=== PATIENT | male | born 1960 | race Hispanic/Latino ===

== ENCOUNTER 2020-12-13 21:37 | Inpatient (IN) | payer MEDICARE ==
[2020-12-13] MEDS ORDERED: VANCOMYCIN 1GM/NS 250 ML 250 ML IV ONE (21:41)
[2020-12-13] MEDS ORDERED: CEFEPIME HCL 1GM 1 GM in SODIUM CHLORIDE 0.9% 50ML 50 ML IV ONE (21:41)
[2020-12-13] MEDS ORDERED: DEXTROSE 50% SYRINGE 50 ML IV PRN (22:00)
[2020-12-13 23:06] LABS: ALBUMIN/GLOBULIN RATIO 0.3 (0.8-2.0); ANION GAP 19.6 mmol/L (8-16); BASOPHILS # (AUTO) 0.1 (0.0-0.1); BASOPHILS % 0.3 % (0.0-1.0); CALCIUM 8.6 mg/dL (8.4-10.2); CREATININE, SERUM 3.07 mg/dL (0.72-1.25); EOSINOPHILS # (AUTO) 0.1 (0.0-0.4); EOSINOPHILS % 0.6 % (0.0-6.0); HEMOGLOBIN 7.9 g/dL (14.0-18.0); LYMPHOCYTES # (AUTO) 1.2 (1.0-3.2); LYMPHOCYTES % 5.4 % (18.0-39.1); MEAN CORPUSCULAR HEMOGLOBIN 28.8 pg (28-32); MEAN CORPUSCULAR HGB CONC 31.6 g/dL (31-35); MEAN CORPUSCULAR VOLUME 91.2 fL (81-99); MONOCYTES # (AUTO) 0.9 (0.2-0.8); MONOCYTES % 4.1 % (4.4-11.3); NEUTROPHILS # (AUTO) 19.2 (2.1-6.9); NEUTROPHILS % 88.4 % (38.7-80.0); PLATELET COUNT 374 x10e3/uL (140-360); POTASSIUM 4.6 mmol/L (3.5-5.1); RED BLOOD COUNT 2.74 x10e6/uL (4.3-5.7); RED CELL DISTRIBUTION WIDTH 15.6 % (11.7-14.4)
[2020-12-13 23:24] LABS: CREATINE KINASE MB 0.8 ng/mL (0-5.0)
[2020-12-14] VITALS (11 sets, daily range): BP systolic 94–164; BP diastolic 24–78
[2020-12-14] MEDS: SODIUM CHLORIDE 0.9% 1000ML 1,000 ML IV SCH ×2 (01:06→04:51)
[2020-12-14] MEDS ORDERED: SODIUM CHLORIDE 0.9% 50ML 50 ML ONE (01:13)
[2020-12-14] MEDS ORDERED: CEFEPIME HCL 1 GM VIAL ONE (01:13)
[2020-12-14 05:41] LABS: BASOPHILS # (AUTO) 0.1 (0.0-0.1); BASOPHILS % 0.4 % (0.0-1.0); EOSINOPHILS # (AUTO) 0.2 (0.0-0.4); EOSINOPHILS % 1.2 % (0.0-6.0); HEMATOCRIT 24.4 % (38.2-49.6); HEMOGLOBIN 7.8 g/dL (14.0-18.0); LYMPHOCYTES # (AUTO) 1.2 (1.0-3.2); LYMPHOCYTES % 5.9 % (18.0-39.1); MEAN CORPUSCULAR HEMOGLOBIN 28.9 pg (28-32); MEAN CORPUSCULAR VOLUME 90.4 fL (81-99); MONOCYTES # (AUTO) 0.9 (0.2-0.8); MONOCYTES % 4.6 % (4.4-11.3); NEUTROPHILS # (AUTO) 17.2 (2.1-6.9); NEUTROPHILS % 86.8 % (38.7-80.0); PLATELET COUNT 361 x10e3/uL (140-360); RED CELL DISTRIBUTION WIDTH 15.2 % (11.7-14.4)
[2020-12-14] MEDS ORDERED: HYDRALAZINE HCL50 MG PEG (05:44)
[2020-12-14] MEDS ORDERED: ASCORBIC ACID500 M4 PEG (05:44)
[2020-12-14] MEDS ORDERED: CLONIDINE HCL0.1 MG PEG (05:44)
[2020-12-14] MEDS ORDERED: HYDROCODON-ACE1 EA11 PEG (05:44)
[2020-12-14] MEDS ORDERED: CALCIUM ACETAT667 M1 PEG (05:44)
[2020-12-14] MEDS ORDERED: FUROSEMIDE20 MG PEG (05:44)
[2020-12-14] MEDS ORDERED: CLOPIDOGREL75 MG PEG (05:44)
[2020-12-14] MEDS ORDERED: DOXAZOSIN MESYLA2 MG PEG (05:44)
[2020-12-14] MEDS ORDERED: AMLODIPINE BESYL5 MG PEG (05:44)
[2020-12-14 06:04] LABS: ALBUMIN 1.9 g/dL (3.5-5.0); ALBUMIN/GLOBULIN RATIO 0.3 (0.8-2.0); ANION GAP 17.8 mmol/L (8-16); CALCIUM 8.5 mg/dL (8.4-10.2); CREATININE, SERUM 3.18 mg/dL (0.72-1.25); POTASSIUM 3.8 mmol/L (3.5-5.1)
[2020-12-14] MEDS: INSULIN REGULAR, HUMAN 100 UNIT/1 ML 3ML VIAL SQ SCH ×4 (07:30→21:00)
[2020-12-14] MEDS ORDERED: CLONIDINE HCL 0.1 MG TAB PEG PRN (09:30)
[2020-12-14] MEDS ORDERED: HYDROCODONE/APAP 5MG-325MG TAB PEG PRN (09:30)
[2020-12-14] MEDS: HYDRALAZINE HCL 100 MG TABLET PEG SCH ×2 (11:00→23:23)
[2020-12-14] MEDS: DOXAZOSIN MESYLATE 2 MG TAB PEG SCH (11:00)
[2020-12-14] MEDS: CLOPIDOGREL BISULFATE 75 MG TAB PEG SCH (11:00)
[2020-12-14] MEDS: AMLODIPINE BESYLATE 5 MG TAB PEG SCH ×2 (11:00→16:14)
[2020-12-14] MEDS: FUROSEMIDE 20 MG TAB PEG SCH ×2 (11:00→16:56)
[2020-12-14] MEDS: CALCIUM ACETATE 667 MG GELCAP PEG SCH ×2 (13:00→16:56)
[2020-12-14] MEDS: ASCORBIC ACID 500 MG TAB PEG SCH (16:56)
[2020-12-14] MEDS: VANCOMYCIN 1GM/NS 250 ML 250 ML IV SCH (23:23)
[2020-12-15] VITALS (8 sets, daily range): BP systolic 120–165; BP diastolic 48–81
[2020-12-15] MEDS: HYDRALAZINE HCL 100 MG TABLET PEG SCH ×3 (06:15→20:45)
[2020-12-15] MEDS ORDERED: CEFEPIME HCL 1 GM VIAL IV SCH (09:00)
[2020-12-15] MEDS: CEFEPIME HCL 1GM 1 GM in SODIUM CHLORIDE 0.9% 50ML 50 ML IV SCH (10:33)
[2020-12-15] MEDS: CALCIUM ACETATE 667 MG GELCAP PEG SCH ×3 (10:33→17:56)
[2020-12-15] MEDS: DOXAZOSIN MESYLATE 2 MG TAB PEG SCH (10:34)
[2020-12-15] MEDS: BALSAM PERU/CASTOR OIL 60 GM OINT...G. TP SCH (10:34)
[2020-12-15] MEDS: FUROSEMIDE 20 MG TAB PEG SCH ×2 (10:34→17:56)
[2020-12-15] MEDS: CLOPIDOGREL BISULFATE 75 MG TAB PEG SCH (10:34)
[2020-12-15] MEDS: ASCORBIC ACID 500 MG TAB PEG SCH ×2 (10:34→17:56)
[2020-12-15] MEDS: AMLODIPINE BESYLATE 5 MG TAB PEG SCH ×2 (10:34→17:56)
[2020-12-15] MEDS: INSULIN REGULAR, HUMAN 100 UNIT/1 ML 3ML VIAL SQ SCH ×4 (11:00→21:02)
[2020-12-15] MEDS: CLINDAMYCIN 600MG / 50ML 50 ML IV SCH ×2 (13:27→21:01)
[2020-12-16] VITALS (8 sets, daily range): BP systolic 111–121; BP diastolic 34–57
[2020-12-16] MEDS: ACETAMINOPHEN 325 MG TAB PO PRN ×2 (01:24→16:15)
[2020-12-16] MEDS: HYDRALAZINE HCL 100 MG TABLET PEG SCH ×3 (05:16→20:05)
[2020-12-16] MEDS: CLINDAMYCIN 600MG / 50ML 50 ML IV SCH ×3 (05:17→19:43)
[2020-12-16] MEDS: INSULIN REGULAR, HUMAN 100 UNIT/1 ML 3ML VIAL SQ SCH ×4 (07:30→20:39)
[2020-12-16 07:56] LABS: BASOPHILS # (AUTO) 0.1 (0.0-0.1); BASOPHILS % 0.3 % (0.0-1.0); EOSINOPHILS # (AUTO) 0.2 (0.0-0.4); HEMATOCRIT 23.1 % (38.2-49.6); HEMOGLOBIN 7.2 g/dL (14.0-18.0); LYMPHOCYTES % 5.2 % (18.0-39.1); MEAN CORPUSCULAR HEMOGLOBIN 29.1 pg (28-32); MEAN CORPUSCULAR HGB CONC 31.2 g/dL (31-35); MEAN CORPUSCULAR VOLUME 93.5 fL (81-99); MONOCYTES # (AUTO) 1.2 (0.2-0.8); MONOCYTES % 6.5 % (4.4-11.3); NEUTROPHILS # (AUTO) 16.2 (2.1-6.9); NEUTROPHILS % 86.2 % (38.7-80.0); PLATELET COUNT 360 x10e3/uL (140-360); RED BLOOD COUNT 2.47 x10e6/uL (4.3-5.7); RED CELL DISTRIBUTION WIDTH 15.8 % (11.7-14.4)
[2020-12-16] MEDS: CALCIUM ACETATE 667 MG GELCAP PEG SCH ×4 (08:00→17:00)
[2020-12-16 08:14] LABS: CALCIUM 8.5 mg/dL (8.4-10.2); CREATININE, SERUM 3.23 mg/dL (0.72-1.25); MAGNESIUM 2.2 MG/DL (1.3-2.1); PHOSPHORUS 1.9 MG/DL (2.3-4.7)
[2020-12-16] MEDS: DOXAZOSIN MESYLATE 2 MG TAB PEG SCH (09:00)
[2020-12-16] MEDS: CLOPIDOGREL BISULFATE 75 MG TAB PEG SCH (09:00)
[2020-12-16] MEDS: AMLODIPINE BESYLATE 5 MG TAB PEG SCH ×2 (09:00→17:00)
[2020-12-16] MEDS: ASCORBIC ACID 500 MG TAB PEG SCH ×2 (09:00→17:00)
[2020-12-16] MEDS: FUROSEMIDE 20 MG TAB PEG SCH ×2 (09:00→17:00)
[2020-12-16] MEDS: CEFEPIME HCL 1GM 1 GM in SODIUM CHLORIDE 0.9% 50ML 50 ML IV SCH (09:08)
[2020-12-16] MEDS: BALSAM PERU/CASTOR OIL 60 GM OINT...G. TP SCH (11:45)
[2020-12-16] MEDS ORDERED: SODIUM CHLORIDE 0.9% 1000ML 1,000 ML ONE (14:59)
[2020-12-16] MEDS: EPOETIN ALFA-EPBX 10,000 UNIT/ML VIAL SC SCH (18:47)
[2020-12-16] MEDS: VANCOMYCIN 1GM/NS 250 ML 250 ML IV SCH (20:30)
[2020-12-17] VITALS (8 sets, daily range): BP systolic 102–128; BP diastolic 41–85
[2020-12-17] MEDS: CLINDAMYCIN 600MG / 50ML 50 ML IV SCH ×3 (04:58→21:30)
[2020-12-17] MEDS: HYDRALAZINE HCL 100 MG TABLET PEG SCH ×3 (05:19→20:52)
[2020-12-17] MEDS: INSULIN REGULAR, HUMAN 100 UNIT/1 ML 3ML VIAL SQ SCH ×4 (07:30→20:51)
[2020-12-17] MEDS: CALCIUM ACETATE 667 MG GELCAP PEG SCH ×3 (08:30→17:19)
[2020-12-17] MEDS: DOXAZOSIN MESYLATE 2 MG TAB PEG SCH (09:00)
[2020-12-17] MEDS: AMLODIPINE BESYLATE 5 MG TAB PEG SCH ×2 (09:00→17:00)
[2020-12-17] MEDS: ASCORBIC ACID 500 MG TAB PEG SCH ×2 (09:26→17:19)
[2020-12-17] MEDS: BALSAM PERU/CASTOR OIL 60 GM OINT...G. TP SCH (09:26)
[2020-12-17] MEDS: FUROSEMIDE 20 MG TAB PEG SCH ×2 (09:26→17:19)
[2020-12-17] MEDS: CEFEPIME HCL 1GM 1 GM in SODIUM CHLORIDE 0.9% 50ML 50 ML IV SCH (09:26)
[2020-12-17] MEDS: CLOPIDOGREL BISULFATE 75 MG TAB PEG SCH (09:26)
[2020-12-18] VITALS (8 sets, daily range): BP systolic 123–167; BP diastolic 44–78
[2020-12-18] MEDS: CLINDAMYCIN 600MG / 50ML 50 ML IV SCH ×3 (05:18→21:15)
[2020-12-18] MEDS: HYDRALAZINE HCL 100 MG TABLET PEG SCH ×5 (05:18→21:38)
[2020-12-18 05:59] LABS: BASOPHILS % 0.2 % (0.0-1.0); EOSINOPHILS # (AUTO) 0.3 (0.0-0.4); EOSINOPHILS % 1.5 % (0.0-6.0); LYMPHOCYTES # (AUTO) 0.9 (1.0-3.2); LYMPHOCYTES % 5.1 % (18.0-39.1); MEAN CORPUSCULAR HEMOGLOBIN 28.1 pg (28-32); MEAN CORPUSCULAR HGB CONC 30.5 g/dL (31-35); MEAN CORPUSCULAR VOLUME 92.1 fL (81-99); MONOCYTES % 5.5 % (4.4-11.3); NEUTROPHILS # (AUTO) 15.3 (2.1-6.9); NEUTROPHILS % 86.9 % (38.7-80.0); PLATELET COUNT 372 x10e3/uL (140-360); RED BLOOD COUNT 2.42 x10e6/uL (4.3-5.7); RED CELL DISTRIBUTION WIDTH 15.7 % (11.7-14.4)
[2020-12-18 06:24] LABS: ALBUMIN 1.8 g/dL (3.5-5.0); ALBUMIN/GLOBULIN RATIO 0.3 (0.8-2.0); ANION GAP 16.2 mmol/L (8-16); CALCIUM 8.7 mg/dL (8.4-10.2); CREATININE, SERUM 3.12 mg/dL (0.72-1.25); POTASSIUM 4.2 mmol/L (3.5-5.1)
[2020-12-18 06:35] LABS: HEMATOCRIT 22.3 % (38.2-49.6); HEMOGLOBIN 6.8 g/dL (14.0-18.0)
[2020-12-18] MEDS: INSULIN REGULAR, HUMAN 100 UNIT/1 ML 3ML VIAL SQ SCH ×4 (07:30→21:00)
[2020-12-18] MEDS ORDERED: DEXTROSE 50% SYRINGE 50 ML IV ONE ×2 (09:00→09:30)
[2020-12-18] MEDS ORDERED: INSULIN REGULAR, HUMAN 100 UNIT/1 ML 3ML VIAL SQ ONE (09:00)
[2020-12-18] MEDS: AMLODIPINE BESYLATE 5 MG TAB PEG SCH ×2 (09:00→16:11)
[2020-12-18] MEDS: DOXAZOSIN MESYLATE 2 MG TAB PEG SCH (09:00)
[2020-12-18] MEDS ORDERED: SODIUM CHLORIDE 0.9% 250ML 250 ML IV ONE (09:30)
[2020-12-18] MEDS ORDERED: CALCIUM GLUCONATE 10% INJ 4.65 MEQ in SODIUM CHLORIDE 0.9% 50ML 50 ML IV ONE (09:30)
[2020-12-18] MEDS: BALSAM PERU/CASTOR OIL 60 GM OINT...G. TP SCH (10:15)
[2020-12-18] MEDS: CALCIUM ACETATE 667 MG GELCAP PEG SCH ×3 (10:18→16:11)
[2020-12-18] MEDS: FUROSEMIDE 20 MG TAB PEG SCH ×2 (10:19→16:11)
[2020-12-18] MEDS: ASCORBIC ACID 500 MG TAB PEG SCH ×2 (10:20→16:11)
[2020-12-18] MEDS: CLOPIDOGREL BISULFATE 75 MG TAB PEG SCH (10:20)
[2020-12-18] MEDS: CEFEPIME HCL 1GM 1 GM in SODIUM CHLORIDE 0.9% 50ML 50 ML IV SCH (10:34)
[2020-12-18] MEDS ORDERED: SODIUM CHLORIDE 0.9% 1000ML 2,000 ML ONE (11:13)
[2020-12-18] MEDS: VANCOMYCIN 1GM/NS 250 ML 250 ML IV SCH (15:00)
[2020-12-18] MEDS: EPOETIN ALFA-EPBX 10,000 UNIT/ML VIAL SC SCH (16:00)
[2020-12-19] VITALS (8 sets, daily range): BP systolic 94–153; BP diastolic 52–71
[2020-12-19] MEDS: CLINDAMYCIN 600MG / 50ML 50 ML IV SCH ×3 (05:06→21:46)
[2020-12-19] MEDS: HYDRALAZINE HCL 100 MG TABLET PEG SCH ×3 (05:06→20:44)
[2020-12-19] MEDS: INSULIN REGULAR, HUMAN 100 UNIT/1 ML 3ML VIAL SQ SCH ×4 (07:30→20:43)
[2020-12-19] MEDS: CALCIUM ACETATE 667 MG GELCAP PEG SCH ×3 (08:00→17:00)
[2020-12-19] MEDS: ASCORBIC ACID 500 MG TAB PEG SCH ×2 (09:00→17:00)
[2020-12-19] MEDS: AMLODIPINE BESYLATE 5 MG TAB PEG SCH ×2 (09:00→17:00)
[2020-12-19] MEDS: FUROSEMIDE 20 MG TAB PEG SCH ×2 (09:00→17:00)
[2020-12-19] MEDS: DOXAZOSIN MESYLATE 2 MG TAB PEG SCH (09:00)
[2020-12-19] MEDS: CLOPIDOGREL BISULFATE 75 MG TAB PEG SCH (09:00)
[2020-12-19] MEDS: CEFEPIME HCL 1GM 1 GM in SODIUM CHLORIDE 0.9% 50ML 50 ML IV SCH (09:00)
[2020-12-19] MEDS: BALSAM PERU/CASTOR OIL 60 GM OINT...G. TP SCH (10:27)
[2020-12-19 10:38] LABS: BASOPHILS # (AUTO) 0.1 (0.0-0.1); BASOPHILS % 0.3 % (0.0-1.0); EOSINOPHILS # (AUTO) 0.1 (0.0-0.4); EOSINOPHILS % 0.3 % (0.0-6.0); HEMATOCRIT 26.7 % (38.2-49.6); HEMOGLOBIN 8.6 g/dL (14.0-18.0); LYMPHOCYTES # (AUTO) 0.8 (1.0-3.2); LYMPHOCYTES % 4.6 % (18.0-39.1); MEAN CORPUSCULAR HEMOGLOBIN 29.5 pg (28-32); MEAN CORPUSCULAR HGB CONC 32.2 g/dL (31-35); MEAN CORPUSCULAR VOLUME 91.4 fL (81-99); MONOCYTES % 5.7 % (4.4-11.3); NEUTROPHILS # (AUTO) 15.9 (2.1-6.9); NEUTROPHILS % 88.2 % (38.7-80.0); PLATELET COUNT 365 x10e3/uL (140-360); RED BLOOD COUNT 2.92 x10e6/uL (4.3-5.7); RED CELL DISTRIBUTION WIDTH 15.5 % (11.7-14.4)
[2020-12-19 11:13] LABS: ANION GAP 16.9 mmol/L (8-16); CALCIUM 8.7 mg/dL (8.4-10.2); CREATININE, SERUM 2.36 mg/dL (0.72-1.25); POTASSIUM 3.9 mmol/L (3.5-5.1)
[2020-12-19] MEDS ORDERED: PROPOFOL IV EMULSION 10 MG/ML 20 ML VIAL ONE (13:12)
[2020-12-19] MEDS ORDERED: SEVOFLURANE INHAL SOLN 250 ML PEN BTL ONE (13:12)
[2020-12-19] MEDS ORDERED: LIDOCAINE HCL 2% LOCAL INJ 5 ML SDV VIAL INJ ONE (13:12)
[2020-12-19] MEDS: METOPROLOL TARTRATE 25 MG TAB PO SCH ×2 (13:54→18:00)
[2020-12-19] MEDS ORDERED: SODIUM CHLORIDE 0.9% 500ML 500 ML ONE (17:29)
[2020-12-19] MEDS: VANCOMYCIN 1GM/NS 250 ML 250 ML IV SCH (20:00)
[2020-12-20] VITALS (8 sets, daily range): BP systolic 101–153; BP diastolic 40–78
[2020-12-20] MEDS: HYDRALAZINE HCL 100 MG TABLET PEG SCH ×3 (05:58→21:35)
[2020-12-20] MEDS: METOPROLOL TARTRATE 25 MG TAB PO SCH ×4 (05:58→17:06)
[2020-12-20] MEDS: CLINDAMYCIN 600MG / 50ML 50 ML IV SCH (05:58)
[2020-12-20 06:14] LABS: BASOPHILS # (AUTO) 0.1 (0.0-0.1); BASOPHILS % 0.4 % (0.0-1.0); EOSINOPHILS # (AUTO) 0.1 (0.0-0.4); HEMATOCRIT 26.1 % (38.2-49.6); HEMOGLOBIN 8.2 g/dL (14.0-18.0); LYMPHOCYTES # (AUTO) 1.1 (1.0-3.2); LYMPHOCYTES % 9.6 % (18.0-39.1); MEAN CORPUSCULAR HEMOGLOBIN 29.8 pg (28-32); MEAN CORPUSCULAR HGB CONC 31.4 g/dL (31-35); MEAN CORPUSCULAR VOLUME 94.9 fL (81-99); MONOCYTES # (AUTO) 0.7 (0.2-0.8); MONOCYTES % 6.2 % (4.4-11.3); NEUTROPHILS # (AUTO) 9.6 (2.1-6.9); PLATELET COUNT 345 x10e3/uL (140-360); RED BLOOD COUNT 2.75 x10e6/uL (4.3-5.7); RED CELL DISTRIBUTION WIDTH 15.6 % (11.7-14.4)
[2020-12-20 06:45] LABS: ALBUMIN 1.8 g/dL (3.5-5.0); ALBUMIN/GLOBULIN RATIO 0.3 (0.8-2.0); ANION GAP 17.1 mmol/L (8-16); CALCIUM 8.3 mg/dL (8.4-10.2); CREATININE, SERUM 3.06 mg/dL (0.72-1.25); POTASSIUM 4.1 mmol/L (3.5-5.1)
[2020-12-20 07:06] LABS: THYROID STIMULATING HORMONE 1.627 uIU/mL (0.350-4.940)
[2020-12-20] MEDS: INSULIN REGULAR, HUMAN 100 UNIT/1 ML 3ML VIAL SQ SCH ×4 (07:30→21:00)
[2020-12-20] MEDS: CALCIUM ACETATE 667 MG GELCAP PEG SCH ×3 (08:00→17:06)
[2020-12-20] MEDS: FUROSEMIDE 20 MG TAB PEG SCH ×2 (09:00→17:06)
[2020-12-20] MEDS: ASCORBIC ACID 500 MG TAB PEG SCH ×2 (09:00→17:06)
[2020-12-20] MEDS: AMLODIPINE BESYLATE 5 MG TAB PEG SCH ×2 (09:00→17:06)
[2020-12-20] MEDS ORDERED: SODIUM CHLORIDE 0.9% 1000ML 1,000 ML ONE (09:46)
[2020-12-20] MEDS: BALSAM PERU/CASTOR OIL 60 GM OINT...G. TP SCH (09:54)
[2020-12-20] MEDS: VANCOMYCIN 1GM/NS 250 ML 250 ML IV SCH (13:00)
[2020-12-20] MEDS: DOXAZOSIN MESYLATE 2 MG TAB PEG SCH (17:05)
[2020-12-20] MEDS: CLOPIDOGREL BISULFATE 75 MG TAB PEG SCH (17:06)
[2020-12-21] VITALS (8 sets, daily range): BP systolic 111–139; BP diastolic 44–67
[2020-12-21] MEDS: HYDRALAZINE HCL 100 MG TABLET PEG SCH ×3 (05:38→22:00)
[2020-12-21] MEDS: METOPROLOL TARTRATE 25 MG TAB PO SCH ×4 (05:38→17:52)
[2020-12-21] MEDS: FUROSEMIDE 20 MG TAB PEG SCH ×2 (09:00→17:51)
[2020-12-21] MEDS: AMLODIPINE BESYLATE 5 MG TAB PEG SCH ×2 (09:00→17:51)
[2020-12-21 09:15] LABS: BASOPHILS % 0.4 % (0.0-1.0); EOSINOPHILS # (AUTO) 0.2 (0.0-0.4); EOSINOPHILS % 1.6 % (0.0-6.0); HEMOGLOBIN 8.6 g/dL (14.0-18.0); LYMPHOCYTES # (AUTO) 1.1 (1.0-3.2); LYMPHOCYTES % 10.3 % (18.0-39.1); MEAN CORPUSCULAR HEMOGLOBIN 28.7 pg (28-32); MEAN CORPUSCULAR HGB CONC 30.7 g/dL (31-35); MEAN CORPUSCULAR VOLUME 93.3 fL (81-99); MONOCYTES # (AUTO) 0.7 (0.2-0.8); MONOCYTES % 6.8 % (4.4-11.3); NEUTROPHILS # (AUTO) 8.8 (2.1-6.9); NEUTROPHILS % 80.1 % (38.7-80.0); PLATELET COUNT 398 x10e3/uL (140-360); RED CELL DISTRIBUTION WIDTH 15.3 % (11.7-14.4)
[2020-12-21 09:43] LABS: CALCIUM 8.4 mg/dL (8.4-10.2); CREATININE, SERUM 2.38 mg/dL (0.72-1.25)
[2020-12-21] MEDS: BALSAM PERU/CASTOR OIL 60 GM OINT...G. TP SCH (10:19)
[2020-12-21] MEDS: CALCIUM ACETATE 667 MG GELCAP PEG SCH ×3 (10:19→17:51)
[2020-12-21] MEDS: ASCORBIC ACID 500 MG TAB PEG SCH ×2 (10:19→17:52)
[2020-12-21] MEDS: INSULIN REGULAR, HUMAN 100 UNIT/1 ML 3ML VIAL SQ SCH ×4 (10:31→20:48)
[2020-12-21] MEDS: EPOETIN ALFA-EPBX 10,000 UNIT/ML VIAL SC SCH (12:24)
[2020-12-21] MEDS: DOXAZOSIN MESYLATE 2 MG TAB PEG SCH (17:51)
[2020-12-21] MEDS: CLOPIDOGREL BISULFATE 75 MG TAB PEG SCH (17:51)
[2020-12-22] VITALS: BP 119/52
[2020-12-22 04:00] VITALS: BP 151/63
[2020-12-22] MEDS: HYDRALAZINE HCL 100 MG TABLET PEG SCH ×2 (05:24→14:00)
[2020-12-22] MEDS: METOPROLOL TARTRATE 25 MG TAB PO SCH ×4 (05:24→17:45)
[2020-12-22] MEDS: INSULIN REGULAR, HUMAN 100 UNIT/1 ML 3ML VIAL SQ SCH ×3 (07:30→16:30)
[2020-12-22] MEDS: CALCIUM ACETATE 667 MG GELCAP PEG SCH ×3 (08:00→16:47)
[2020-12-22 08:29] VITALS: BP 136/68
[2020-12-22 08:45] VITALS: BP 136/68
[2020-12-22] MEDS: CLOPIDOGREL BISULFATE 75 MG TAB PEG SCH (09:00)
[2020-12-22] MEDS: APIXABAN 5 MG TABLET PO SCH ×2 (09:00→16:47)
[2020-12-22] MEDS: BALSAM PERU/CASTOR OIL 60 GM OINT...G. TP SCH (09:00)
[2020-12-22] MEDS: AMLODIPINE BESYLATE 5 MG TAB PEG SCH ×2 (09:00→16:47)
[2020-12-22] MEDS: DOXAZOSIN MESYLATE 2 MG TAB PEG SCH (09:00)
[2020-12-22] MEDS: ASCORBIC ACID 500 MG TAB PEG SCH ×2 (09:00→16:47)
[2020-12-22] MEDS: FUROSEMIDE 20 MG TAB PEG SCH ×2 (09:00→16:46)
[2020-12-22 09:32] LABS: BASOPHILS # (AUTO) 0.1 (0.0-0.1); BASOPHILS % 0.5 % (0.0-1.0); EOSINOPHILS # (AUTO) 0.3 (0.0-0.4); HEMATOCRIT 28.4 % (38.2-49.6); HEMOGLOBIN 8.8 g/dL (14.0-18.0); LYMPHOCYTES % 8.2 % (18.0-39.1); MEAN CORPUSCULAR HEMOGLOBIN 28.8 pg (28-32); MEAN CORPUSCULAR VOLUME 92.8 fL (81-99); MONOCYTES # (AUTO) 0.7 (0.2-0.8); MONOCYTES % 5.7 % (4.4-11.3); NEUTROPHILS # (AUTO) 10.2 (2.1-6.9); NEUTROPHILS % 82.7 % (38.7-80.0); PLATELET COUNT 386 x10e3/uL (140-360); RED BLOOD COUNT 3.06 x10e6/uL (4.3-5.7); RED CELL DISTRIBUTION WIDTH 15.4 % (11.7-14.4)
[2020-12-22 09:50] LABS: ANION GAP 14.1 mmol/L (8-16); CALCIUM 8.4 mg/dL (8.4-10.2); CREATININE, SERUM 2.51 mg/dL (0.72-1.25); POTASSIUM 4.1 mmol/L (3.5-5.1)
[2020-12-22 13:04] VITALS: BP 148/64
[2020-12-22 16:57] VITALS: BP 135/57
== END 2020-12-22 14:57 | disposition home or self-care (01) | DRG 853 ==
LOC: ER 21:44 → ERHOLD 21:45 → MED/SURG2 12-14 00:05
PROC: 30233N1 Transfusion of Nonautologous Red Blood Cells into Peripheral Vein, Percutaneous Approach (ICD-10-PCS; 2020-12-13)
PROC: 0Y6J0Z2 Detachment at Left Lower Leg, Mid, Open Approach (ICD-10-PCS; principal; 2020-12-19 09:30)
DX: A41.9 Sepsis, unspecified organism (principal); N18.6 End stage renal disease; E11.52 Type 2 diabetes mellitus with diabetic peripheral angiopathy with gangrene; I96 Gangrene, not elsewhere classified; M86.8X7 Other osteomyelitis, ankle and foot; I13.2 Hypertensive heart and chronic kidney disease with heart failure and with stage 5 chronic kidney disease, or end stage renal disease; N39.0 Urinary tract infection, site not specified; Z16.12 Extended spectrum beta lactamase (ESBL) resistance; K72.90 Hepatic failure, unspecified without coma; I48.0 Paroxysmal atrial fibrillation; Z86.73 Personal history of transient ischemic attack (TIA), and cerebral infarction without residual deficits; E11.69 Type 2 diabetes mellitus with other specified complication; Z79.899 Other long term (current) drug therapy; I49.9 Cardiac arrhythmia, unspecified; E11.22 Type 2 diabetes mellitus with diabetic chronic kidney disease; Z99.2 Dependence on renal dialysis; D64.9 Anemia, unspecified; B96.20 Unspecified Escherichia coli [E. coli] as the cause of diseases classified elsewhere; R13.10 Dysphagia, unspecified; Z93.1 Gastrostomy status; Z20.822 Contact with and (suspected) exposure to COVID-19; Z79.4 Long term (current) use of insulin
CPT/HCPCS: 36415; 71045; 80048; 80053; 82550; 82553; 82948; 83605; 83735; 84100; 84443; 84484; 85025; 85730; 86704; 86706; 86850; 86900; 86920; 87040; 87086; 87186; 87340; 87350; 88307; 90962; 93005; 93041; 93306; 99251; 99284; J0610; J0692; J1817; J2001; J3370; J7030; J7040; J7050; P9016; U0002

== ENCOUNTER 2021-01-20 07:05 | Emergency (ER) | payer MEDICARE ==
[~2021-01-20] VITALS: Ht 152.4 cm; Wt 74.8 kg
[~2021-01-20 07:05] MED LIST: AMLODIPINE BESYL5 MG PEG; ASCORBIC ACID500 M4 PEG; CALCIUM ACETAT667 M1 PEG; CLONIDINE HCL0.1 MG PEG; CLOPIDOGREL75 MG PEG; DOXAZOSIN MESYLA2 MG PEG; FUROSEMIDE20 MG PEG; HYDRALAZINE HCL50 MG PEG; HYDROCODON-ACE1 EA11 PEG
== END 2021-01-20 11:03 | disposition expired ==
LOC: ER 07:18
DX: I46.9 Cardiac arrest, cause unspecified (principal); I12.0 Hypertensive chronic kidney disease with stage 5 chronic kidney disease or end stage renal disease; E11.22 Type 2 diabetes mellitus with diabetic chronic kidney disease; N18.6 End stage renal disease; Z99.2 Dependence on renal dialysis; G40.909 Epilepsy, unspecified, not intractable, without status epilepticus; I73.9 Peripheral vascular disease, unspecified; Z86.73 Personal history of transient ischemic attack (TIA), and cerebral infarction without residual deficits; Z89.511 Acquired absence of right leg below knee
CPT/HCPCS: 99284